=== PATIENT | male | born 1975 | race Caucasian/White ===

== ENCOUNTER 2019-06-09 13:30 | Outpatient (RCR) | payer BC, SELFPAY ==
[2019-06-01 10:02] VITALS: PULSE 69
--- NOTE | 2019-06-03 13:44 | PCCPR ---
Absent today due to inclement weather.
--- NOTE | 2019-06-17 14:22 | PCCPR ---
pt called, he has been sick this week. Plans to return next week to [facility]. Will call us on Friday to discuss class times for week.
--- NOTE | 2019-06-24 18:24 | PCCPR ---
Spoke with Luiz today, he has been absent this week. He is still sick but plans to return next week if he is feeling better.
--- NOTE | 2019-07-01 18:52 | PCCPR ---
Continued absence due to illness Spoke with Luiz states has been ill with an upper respiratory infection. He went to urgent care yesterday. He is now on a Z pack hopes to return soon. He is ok with being assigned to the 0700 class and calling to see what is available that day. He would still like to come for a few sessions to feel confident continuing at the gym.
--- NOTE | 2019-07-14 09:58 | PCCPR ---
No call no show-left voicemail requesting he call us back on plan to return. Explained to him that if we do not hear back from him by the end of this week we will plan to discharge him.
--- NOTE | 2019-07-19 08:29 | PCCPR ---
Luiz did not return our call, has not been here for three weeks, discharge from program.
== END 2019-07-19 09:00 | disposition home or self-care (01) ==
LOC: ANHCPREHAB 13:30
PROVIDERS: Visit Provider Internal Medicine Cardiovascular Disease
DX: Z95.5 Presence of coronary angioplasty implant and graft (principal)
CPT/HCPCS: 93798

== ENCOUNTER 2019-06-30 15:55 | Emergency (ER) | payer BC, SELFPAY ==
[2019-06-30 16:01] VITALS: BP 128/73; PULSE 67; RESP 16; TEMP 36.1; O2SAT 97
--- NOTE | 2019-06-30 16:12 | ED.URI ---
HPI - URI/Sore Throat General Chief Complaint: Upper Respiratory Infection Stated Complaint: SORE THROAT/EARACHE/CHEST CONGESTION Time Seen by Provider: 06/30/19 16:25 Source: patient and RN notes reviewed Mode of arrival: ambulatory Limitations: no limitations History of Present Illness HPI Narrative: 44-year-old male presents with concern for 2-week history of cough, chest congestion. Reports recent sore throat and ear pain. Reports multiple [id number] medications with little relief. MD elicited complaint: cough and sore throat Related Data Home Medications Medication Instructions Recorded Confirmed aspirin 81 mg PO DAILY 06/01/19 06/01/19 atorvastatin 80 mg PO HS 06/01/19 06/01/19 clopidogrel 75 mg PO DAILY 06/01/19 06/01/19 lisinopril 20 mg PO DAILY 06/01/19 06/01/19 metoprolol tartrate 12.5 mg PO BID 06/01/19 06/01/19 Allergies Allergy/AdvReac Type Severity Reaction Status Date / Time codeine Allergy Unknown NAUSEA Verified 08/01/16 19:49 Review of Systems Review of Systems: Narrative: CONSTITUTIONAL: Reports malaise. Denies chills, sweats, or fever. EYES: Denies visual changes, redness, or discharge. ENT: Denies rhinorrhea, congestion, sinus pain, otalgia. Reports postnasal drainage and sore throat. Reports swollen lymph node CARDIOVASCULAR: Denies chest pain, palpitations, or edema. RESPIRATORY: Reports cough, chest congestion. Denies dyspnea. GASTROINTESTINAL: Denies abdominal pain, nausea, vomiting, diarrhea SKIN: Denies rash or itching. MUSCULOSKELETAL: Denies myalgia. NEUROLOGIC: Denies headache. All systems reviewed & are unremarkable except as noted in HPI and below PMFSH Family History Family History (Updated 06/01/19 @ 08:43 by Ester Velazquez RN) Grandparent Acute myocardial infarction Father Acute myocardial infarction Father Hypertension Diabetes mellitus Mother Hypertension Social History Social History Smoking status: Never smoker Comments At time of signature, agree with nursing past medical, surgical, social and family history. There is no relevant family history pertinent to the presenting complaint Exam Narrative: Exam Narrative: GENERAL: Well-appearing, well-nourished, and in no acute distress. HEAD: Normocephalic EYES: PERRLA, conjunctivae clear ENT: Nares clear, turbinates erythematous, no discharge. Mucous membranes moist. TM pearly nichols with sharp light reflex bilaterally; no tragal tenderness. Oropharynx not erythematous without lesions. Tonsils not enlarged and without exudate, no drooling, no hoarseness, no trismus. NECK: Supple. No lymphadenopathy CHEST: Clear to auscultation, breath sounds equal. No wheezing, rhonchi, rales, or stridor. No respiratory distress, speaks in full sentences. Cough noted HEART: Regular rate and rhythm. No murmur heard. Normal peripheral pulses. SKIN: Warm, dry, no rash. NEURO: Alert and oriented x3. PSYCH: Normal mood and affect Course Course Emergency Course: Patient is aware of diagnosis, understands and agrees to treatment plan. Anticipatory guidance given. Patient agrees to follow-up as directed and is aware of reasons to seek care at the emergency department. Portions of this record may have been created with voice recognition software Vital Signs Vital signs: Vital Signs Temperature 97 F L 06/30/19 16:01 Pulse Rate 67 06/30/19 16:01 Respiratory Rate 16 06/30/19 16:01 Blood Pressure 128/73 06/30/19 16:01 Pulse Oximetry 97 06/30/19 16:01 Temperature 97 F L 06/30/19 16:01 Pulse Rate 67 06/30/19 16:01 Respiratory Rate 16 06/30/19 16:01 Blood Pressure 128/73 06/30/19 16:01 Pulse Oximetry 97 06/30/19 16:01 Reviewed. MDM - URI/Sore Throat MDM Narrative Medical decision making narrative: Differential diagnosis considered: Strep pharyngitis, allergic rhinitis, upper respiratory tract infection, sinusitis, rhinosinusitis, nasopharyngitis. viral pharyngitis, otitis media, otitis exte
== END 2019-06-30 16:30 | disposition home or self-care (01) ==
PROVIDERS: Emergency Provider Nurse Practitioner
DX: J40 Bronchitis, not specified as acute or chronic (principal); I25.10 Atherosclerotic heart disease of native coronary artery without angina pectoris; Z95.5 Presence of coronary angioplasty implant and graft; I10 Essential (primary) hypertension; J45.909 Unspecified asthma, uncomplicated
CPT/HCPCS: 87077; 87081; 87880; 99213; G0463

== ENCOUNTER 2019-07-07 13:45 | Emergency (ER) | payer BC, SELFPAY ==
[2019-07-07 13:55] VITALS: BP 122/73; PULSE 80; RESP 16; TEMP 36.2; O2SAT 98
--- NOTE | 2019-07-07 14:13 | ED.GENADULT ---
HPI - General Adult General Chief complaint: Upper Respiratory Infection Stated complaint: DRAINAGE/SORE THROAT Time Seen by Provider: 07/07/19 14:13 Source: patient Mode of arrival: ambulatory Limitations: no limitations History of Present Illness HPI narrative: 44-year-old male patient presents to the [facility] with complaints of cold symptoms. Patient states he was seen here last week for sore throat, cough and congestion. Patient states he was tested for strep that was negative however he was put on a Z-Kirt and given steroids for possible bronchitis. Patient states that he finished the antibiotic as well as the steroids states he still has some congestion a slight cough does feel short of breath at times. Patient states he continues to have a sore throat. Patient's strep culture did come back positive however patient was given the azithromycin and therefore another antibiotic was not called in to him at that time. Patient states he did get a flu shot this year. Patient denies smoking. Related Data Home Medications Medication Instructions Recorded Confirmed aspirin 81 mg PO DAILY 06/01/19 06/01/19 atorvastatin 80 mg PO HS 06/01/19 06/01/19 clopidogrel 75 mg PO DAILY 06/01/19 06/01/19 lisinopril 20 mg PO DAILY 06/01/19 06/01/19 metoprolol tartrate 12.5 mg PO BID 06/01/19 06/01/19 Allergies Allergy/AdvReac Type Severity Reaction Status Date / Time codeine Allergy Unknown NAUSEA Verified 08/01/16 19:49 Review of Systems Review of Systems: Narrative: CONSTITUTIONAL: Denies fever, chills, or sweats. EYES: Denies visual changes, redness, or discharge. ENT: Denies rhinorrhea, positive congestion, sore throat, denies otalgia. CARDIOVASCULAR: Denies chest pain, palpitations, or edema. RESPIRATORY: Positive cough with dyspnea. GASTROINTESTINAL: Denies abdominal pain, nausea, vomiting, or diarrhea. GENITOURINARY: Denies dysuria or hematuria. SKIN: Denies rash or itching. MUSCULOSKELETAL: Denies back pain, joint pain, or myalgia. NEUROLOGIC: Denies headache, numbness, or weakness. PSYCHIATRIC: Denies anxiety or depression. [facility] Family History Family History Grandparent Acute myocardial infarction Father Acute myocardial infarction Father Hypertension Diabetes mellitus Mother Hypertension Social History Social History Smoking status: Never smoker Comments At the time of my signature I agree with nursing past medical history, surgical, social, and family history. There is no relevant family history pertinent to the presenting complaint. Exam Narrative: Exam Narrative: GENERAL: Well-appearing, well-nourished, and in no acute distress. HEAD: Normocephalic, atraumatic. No tenderness noted to frontal maxillary sinuses on palpation. EYES: PERRLA and EOMI. ENT: Nares with erythema and edema noted bilaterally, patent, no rhinorrhea or epistaxis. Mucous membranes moist. Posterior pharynx with no erythema, no tonsil enlargement, no exudates or lesions present. NECK: Supple. No lymphadenopathy CHEST: Clear to auscultation. No respiratory distress. Patient able talk in clear complete sentences. No tripoding noted. HEART: Regular rate and rhythm. No murmur heard. Normal peripheral pulses. ABDOMEN: Soft, nontender, nondistended, normal active bowel sounds. EXTREMITIES: Normal range of motion. No edema. SKIN: Warm, dry, no rash. NEURO: No focal deficits. Alert and oriented x3. Course Reevaluation(s) Reevaluation #1: Notify patient that his strep today is negative. Discussed with him that as far as his cough is concerned I do believe that this is most likely bronchitis. Discussed with him bronchitis can last anywhere from 68 weeks and is usually viral and is not treated with antibiotics. Discussed with patient the fact that he was already on antibiotics and it did not help his cough at all proves that this is mo
== END 2019-07-07 14:42 | disposition home or self-care (01) ==
PROVIDERS: Emergency Provider Nurse Practitioner Family
DX: J20.9 Acute bronchitis, unspecified (principal); J02.9 Acute pharyngitis, unspecified; I25.10 Atherosclerotic heart disease of native coronary artery without angina pectoris; I10 Essential (primary) hypertension; J45.909 Unspecified asthma, uncomplicated
CPT/HCPCS: 87081; 87880; 99213; G0463